=== PATIENT | female | born 1995 | race Caucasian/White ===

== ENCOUNTER 2017-08-08 00:37 | Emergency (ER) | payer BC ==
[2017-08-08] MEDS ORDERED: KETOROLAC 15 MG/1 ML SDV IVP ONE (02:04)
[2017-08-08] MEDS ORDERED: NS 1,000 ML IV ONE (02:04)
[2017-08-08] MEDS ORDERED: ONDANSETRON 4 MG/2 ML VIAL IVP ONE (02:04)
--- NOTE | 2017-08-08 02:05 | EDPHY ---
H & P Stated Complaint: ? syncope, fall, hit head Time Seen by Provider: 08/08/17 01:49 HPI/ROS: HPI The patient presents with after episode of ALOC. She drank alcohol and smoked marijuana and then became dizzy. She sat at her roommates desk and then collapsed, falling out of her chair, landing on her side. She said during this time her entire body became weak, she lost vision, and she awoke on the floor. She has had a headache ever since which is frontal and temporal, bilateral and throbbing. She does have a history of prior syncope. She has not had any vomiting, changes in her vision, behavioral change.. REVIEW OF SYSTEMS Constitutional: No fever, no chills. Eyes: No discharge. ENT: No sore throat. Cardiovascular: No chest pain, no palpitations. Respiratory: No cough, no shortness of breath. Gastrointestinal: No abdominal pain, no vomiting. Genitourinary: No hematuria. Musculoskeletal: No back pain. Skin: No rashes. Neurological: Positive for headache. PMHx: Depression, anxiety, asthma Soc Hx: College student, uses alcohol and marijuana PHYSICAL General Appearance: Alert, no distress Eyes: Pupils equal and round no pallor or injection ENT, Mouth: Mucous membranes moist Respiratory: There are no retractions, lungs are clear to auscultation Cardiovascular: Regular rate and rhythm Gastrointestinal: Abdomen is soft and non-tender, no masses, bowel sounds normal Neurological: A&O, cranial nerves 2-12 intact, 5/5 strength in upper and lower extremities which is symmetric Skin: Warm and dry, no rashes Musculoskeletal: Neck is supple non tender Extremities: symmetrical, full range of motion Psychiatric: Patient is oriented X 3, there is no agitation Source: Patient Exam Limitations: No limitations - Personal History LMP (Females 10-55): Now Current Tetanus Diphtheria and Acellular Pertussis (TDAP): Unsure - Medical/Surgical History Hx Asthma: Yes Hx Chronic Respiratory Disease: No Hx Diabetes: No Hx Cardiac Disease: No Hx Renal Disease: No Hx Cirrhosis: No Hx Alcoholism: No Hx HIV/AIDS: No Hx Splenectomy or Spleen Trauma: No Other PMH: PMH: depression, anxiety, asthma - Social History Smoking Status: Current every day smoker Constitutional: Initial Vital Signs Temperature (C) 36.5 C 08/08/17 00:40 Heart Rate 110 H 08/08/17 00:40 Respiratory Rate 18 08/08/17 00:40 Blood Pressure 131/81 H 08/08/17 00:40 O2 Sat (%) 98 08/08/17 00:40 O2 Delivery Mode Room Air Allergies/Adverse Reactions: No Known Allergies Allergy (Unverified 03/24/16 09:22) Home Medications: Medication Instructions Recorded Abilify 03/24/16 Abilify 03/24/16 Singulair 03/24/16 Zoloft 50mg (*) 03/24/16 Bcp 08/08/17 VYVANSE 08/08/17 Medical Decision Making - Diagnostics EKG Interpretation: EKG: Complete interpretation has been separately recorded in the [facility] archive. Summary impression: Normal sinus rhythm Differential Diagnosis: This is a 22-year-old female with history of anxiety and depression, also past history of vasovagal syncope who presents with an episode of ALOC preceded by dizziness, now complaining of a frontal throbbing headache. She fell out of a chair while seated at a desk, thus I do not believe this mechanism is significant enough to cause intracranial hemorrhage. She could have a concussion though her headache sounds somewhat more migrainous in nature. She does have a prior history of migraine headache. She does appear to be intoxicated after using marijuana. In the emergency department, EKG was performed to evaluate for arrhythmia as cause of syncope, this was normal. She received IV fluids and migraine medications with complete resolution in her headache and felt much better. She was discharged home with a friend. - Data Points Medications Given: Discontinued Medications Sodium Chloride (Ns) 1,000 mls @ 0 mls/hr IV EDNOW ONE; Wide Open PRN Reason: Protocol Stop: 08/08/17 02:05 Last Admin: 08/08/17 02:24 Dose: 1,000 mls Ketorolac Tromethamine (Toradol) 15 mg IVP EDNOW ONE Stop: 08/08/17 02:05 Last Admin: 08/08/17 02:24 Dose: 15 mg Ondansetron HCl (Zofran) 4 mg IVP EDNOW ONE Stop: 08/08/17 02:05 Last Admin: 08/08/17 02:25 Dose: 4 mg Departure - Departure Disposition: Home, Routine, Self-Care Clinical Impression: Syncope Qualifiers: Syncope type: vasovagal syncope Qualified Code(s): R55 - Syncope and collapse Headache Qualifiers: Headache type: unspecified Headache chronicity pattern: acute headache Intractability: not intractable Qualified Code(s): R51 - Headache Condition: Good Instructions: Migraine Headache (ED), Syncope (ED) Additional Instructions: Please return to the emergency department if you are worse in any way. Please make sure to drink plenty of fluids. If your headache recurs, I recommend you take ibuprofen 400 mg every 6 hr. Referrals: GENOVEV[facility] Pascual,. [Clinic] - As per Instructions
--- NOTE | 2017-08-08 02:24 | CPEKG ---
Heart Rate: 96 RR Interval: 625 P-R Interval: 152 QRSD Interval: 80 QT Interval: 360 QTC Interval: 455 P Orange: 66 QRS Orange: 83 T Wave Orange: 47 EKG Severity - NORMAL ECG - EKG Impression: SINUS RHYTHM Electronically Signed By: Svitlana Hodge 08-Aug-2017 07:18:21
[2017-08-08 03:16] VITALS: BP 107/61; PULSE 96; RESP 16; TEMP 97.9; O2SAT 96
== END 2017-08-08 03:49 | disposition home or self-care (01) ==
DX: R55 Syncope and collapse (principal); R51 Headache; J45.909 Unspecified asthma, uncomplicated; E86.9 Volume depletion, unspecified; F17.200 Nicotine dependence, unspecified, uncomplicated
CPT/HCPCS: 96374; J1885; J2405